=== PATIENT | female | born 1995 | race Caucasian/White ===

== ENCOUNTER 2019-06-29 16:32 | Emergency (ER) | payer MEDICAID ==
[~2019-06-29] VITALS: Ht 182.9 cm; Wt 110.0 kg
[~2019-06-29 16:32] MED LIST: IBUP-1984 PO; NO HOME MEDS
[2019-06-29 18:09] LABS: BASOPHILS # (AUTO) 0.1 X10'3 (0-0.2); BASOPHILS % (AUTO) 0.6 % (0-1); EOSINOPHILS # (AUTO) 0.1 X10'3 (0-0.9); EOSINOPHILS % (AUTO) 1.3 % (0-6); HEMATOCRIT 36.6 % (35.0-45.0); HEMOGLOBIN 11.6 g/dl (12.0-16.0); LYMPHOCYTES # (AUTO) 2.7 X10'3 (1.1-4.8); LYMPHOCYTES % (AUTO) 25.9 % (21-51); MEAN CORPUSCULAR HEMOGLOBIN 24.4 PG (27.0-31.0); MEAN CORPUSCULAR HGB CONC 31.7 g/dL (33.0-36.5); MEAN CORPUSCULAR VOLUME 76.9 FL (78-98); MEAN PLATELET VOLUME 7.1 FL (7.4-10.4); MONOCYTES # (AUTO) 0.9 X10'3 (0-0.9); MONOCYTES % (AUTO) 8.1 % (2-12); NEUTROPHILS # (AUTO) 6.7 X10'3 (1.8-7.7); NEUTROPHILS % (AUTO) 64.1 % (42-75); PLATELET COUNT 434 X10'3 (140-440); RED BLOOD COUNT 4.76 X10'6 (4.20-5.60); RED CELL DISTRIBUTION WIDTH 15.4 % (11.5-14.5); WHITE BLOOD COUNT 10.5 X10'3 (4.5-11.0)
--- NOTE | 2019-06-29 18:15 | NUR ---
CHAPERONED VIRIDIANA RAMIREZ FOR ABD EXAM
[2019-06-29 18:19] LABS: URINE HCG NEGATIVE (NEG)
[2019-06-29 18:20] LABS: CLARITY,URINE CLOUDY (Clear); COLOR,URINE YELLOW (Yellow); GLUCOSE, URINE NEGATIVE (Neg); KETONES,URINE NEGATIVE (Neg); LEUKOCYTE ESTERASE ,URINE MODERATE (Neg); NITRITES, URINE NEGATIVE (Neg); OCCULT BLOOD,URINE TRACE-LYSED (Neg); PROTEIN,URINE NEGATIVE (Neg); UROBILINOGEN,URINE 0.2 E.U/dL (0.2-1.0)
[2019-06-29] MEDS ORDERED: morphine 4 MG/ML inj SYRINge IV PRN (18:20)
[2019-06-29] MEDS ORDERED: ondansetron/PF 4mg/2ml inj IV ONE (18:20)
[2019-06-29] MEDS ORDERED: normal saline 1000ML IV soln IVB ONE (18:20)
[2019-06-29 18:21] LABS: UA COLLECTION TYPE CLN CATCH MIDSTREAM
[2019-06-29 18:22] LABS: ALANINE AMINOTRANSFERASE 36 U/L (12-78); ALBUMIN 3.7 G/DL (3.4-5.0); ALBUMIN/GLOBULIN RATIO 0.8 (1.1-1.5); ALKALINE PHOSPHATASE 102 IU/L (46-116); ANION GAP 9 (8-16); ASPARTATE AMINO TRANSFERASE 21 U/L (10-37); BILIRUBIN,TOTAL 0.3 MG/DL (0.1-1.0); BLOOD UREA NITROGEN 12 MG/DL (7-18); BUN/CREATININE RATIO 14.1 (6.6-38.0); CALCIUM 9.3 MG/DL (8.5-10.1); CHLORIDE 103 MMOL/L (99-107); CREATININE 0.85 MG/DL (0.40-0.90); GLUCOSE 94 MG/DL (70-104); POTASSIUM 4.3 MMOL/L (3.5-5.1); SODIUM 137 MMOL/L (135-145); TOTAL CARBON DIOXIDE 24.8 MMOL/L (24-32); TOTAL PROTEIN 8.2 G/DL (6.4-8.2); eGFR 84 ML/MIN
[2019-06-29 18:25] LABS: LIPASE 97 U/L (73-393)
[2019-06-29 18:49] LABS: BACTERIA,URINE FEW /HPF (Neg); MUCUS STRANDS MANY /LPF (Neg); RBC,URINE NONE SEEN /HPF (0-2); SQUAMOUS EPITHELIAL CELL,UR MODERATE /LPF (FEW)
[2019-06-29 18:50] LABS: CAL OXALATE CRYSTALS 1+ /HPF (NEGATIVE); WBC CLUMPS,URINE FEW /HPF (NEGATIVE)
[2019-06-29] MEDS ORDERED: SULF1TAB49 PO (19:07)
[2019-06-29 19:22] VITALS: BP 114/65
== END 2019-06-29 19:27 | disposition home or self-care (01) ==
LOC: ER 16:33
DX: R10.31 Right lower quadrant pain (principal); R59.0 Localized enlarged lymph nodes; R11.0 Nausea; I10 Essential (primary) hypertension; J45.909 Unspecified asthma, uncomplicated; Z88.1 Allergy status to other antibiotic agents; Z91.040 Latex allergy status; Z79.2 Long term (current) use of antibiotics; Z79.899 Other long term (current) drug therapy
CPT/HCPCS: 36415; 74176; 80053; 81001; 81025; 83690; 85025; 87088; 96374; 96375; 99284; J2270; J2405; J7030

== ENCOUNTER 2019-08-04 06:52 | Emergency (ER) | payer MEDICAID ==
[~2019-08-04] VITALS: Ht 182.9 cm; Wt 142.7 kg
[2019-08-04 07:23] LABS: BASOPHILS % (AUTO) 0.6 % (0-1); EOSINOPHILS # (AUTO) 0.1 X10'3 (0-0.9); EOSINOPHILS % (AUTO) 1.3 % (0-6); HEMATOCRIT 35.4 % (35.0-45.0); HEMOGLOBIN 11.3 g/dl (12.0-16.0); LYMPHOCYTES # (AUTO) 2.5 X10'3 (1.1-4.8); LYMPHOCYTES % (AUTO) 28.1 % (21-51); MEAN CORPUSCULAR HEMOGLOBIN 24.5 PG (27.0-31.0); MEAN CORPUSCULAR HGB CONC 31.8 g/dL (33.0-36.5); MEAN CORPUSCULAR VOLUME 77.2 FL (78-98); MEAN PLATELET VOLUME 7.3 FL (7.4-10.4); MONOCYTES # (AUTO) 0.8 X10'3 (0-0.9); MONOCYTES % (AUTO) 8.9 % (2-12); NEUTROPHILS # (AUTO) 5.4 X10'3 (1.8-7.7); NEUTROPHILS % (AUTO) 61.1 % (42-75); PLATELET COUNT 347 X10'3 (140-440); RED BLOOD COUNT 4.59 X10'6 (4.20-5.60); RED CELL DISTRIBUTION WIDTH 16.1 % (11.5-14.5); WHITE BLOOD COUNT 8.8 X10'3 (4.5-11.0)
[2019-08-04 07:28] LABS: URINE HCG NEGATIVE (NEG)
[2019-08-04 07:29] LABS: CLARITY,URINE SLIGHTLY CLOUDY (Clear); COLOR,URINE YELLOW (Yellow); GLUCOSE, URINE NEGATIVE (Neg); KETONES,URINE NEGATIVE (Neg); LEUKOCYTE ESTERASE ,URINE NEGATIVE (Neg); NITRITES, URINE NEGATIVE (Neg); OCCULT BLOOD,URINE TRACE-INTACT (Neg); PH,URINE 5.5 (4.8-8.0); PROTEIN,URINE NEGATIVE (Neg); UA COLLECTION TYPE CLN CATCH MIDSTREAM; UROBILINOGEN,URINE 0.2 E.U/dL (0.2-1.0)
[2019-08-04 07:37] LABS: MUCUS STRANDS MANY /LPF (Neg); SQUAMOUS EPITHELIAL CELL,UR MANY /LPF (FEW)
[2019-08-04 07:39] LABS: ALANINE AMINOTRANSFERASE 48 U/L (12-78); ALBUMIN 3.4 G/DL (3.4-5.0); ALBUMIN/GLOBULIN RATIO 0.8 (1.1-1.5); ALKALINE PHOSPHATASE 92 IU/L (46-116); ANION GAP 12 (8-16); ASPARTATE AMINO TRANSFERASE 31 U/L (10-37); BILIRUBIN,TOTAL 0.2 MG/DL (0.1-1.0); BLOOD UREA NITROGEN 15 MG/DL (7-18); BUN/CREATININE RATIO 13.5 (6.6-38.0); CALCIUM 8.6 MG/DL (8.5-10.1); CHLORIDE 108 MMOL/L (99-107); CREATININE 1.11 MG/DL (0.40-0.90); GLUCOSE 134 MG/DL (70-104); LIPASE 89 U/L (73-393); POTASSIUM 3.6 MMOL/L (3.5-5.1); SODIUM 143 MMOL/L (135-145); TOTAL CARBON DIOXIDE 22.8 MMOL/L (24-32); TOTAL PROTEIN 7.5 G/DL (6.4-8.2); eGFR 61 ML/MIN
[2019-08-04 07:39] LABS: BACTERIA,URINE FEW /HPF (Neg); CAL OXALATE CRYSTALS 2+ /HPF (NEGATIVE)
[2019-08-04 07:40] LABS: RBC,URINE 0-2 /HPF (0-2); TRANSITIONAL EPI CELLS,URINE FEW /HPF
[2019-08-04] MEDS ORDERED: normal saline 1000ML IV soln IVB ONE (07:40)
[2019-08-04] MEDS ORDERED: morphine 4 MG/ML inj SYRINge IV ONE (07:40)
[2019-08-04] MEDS ORDERED: ketorolac trometh. 30mg/ml inj. IV ONE (07:40)
[2019-08-04 07:43] LABS: HYALINE CASTS 0-3 /LPF (NEGATIVE)
[2019-08-04 07:50] LABS: ANISOCYTOSIS 1+; MICROCYTOSIS 1+; PLATELET ESTIMATE NORMAL
[2019-08-04] MEDS ORDERED: iohexol 300mg/ml 100ml inj. ONE (07:57)
--- NOTE | 2019-08-04 08:32 | NUR ---
Patient to CT at this time via wheelchair, no signs of distress noted, pain medication effective per patient.
[2019-08-04 09:20] LABS: CLARITY,URINE SLIGHTLY CLOUDY (Clear); COLOR,URINE YELLOW (Yellow); GLUCOSE, URINE NEGATIVE (Neg); KETONES,URINE NEGATIVE (Neg); LEUKOCYTE ESTERASE ,URINE NEGATIVE (Neg); NITRITES, URINE NEGATIVE (Neg); OCCULT BLOOD,URINE NEGATIVE (Neg); PROTEIN,URINE NEGATIVE (Neg); UROBILINOGEN,URINE 0.2 E.U/dL (0.2-1.0)
[2019-08-04 09:30] LABS: UA COLLECTION TYPE CLN CATCH MIDSTREAM
[2019-08-04 09:51] LABS: AMORPHOUS URATES 3+; SQUAMOUS EPITHELIAL CELL,UR FEW /LPF (FEW)
[2019-08-04 09:52] LABS: BACTERIA,URINE FEW /HPF (Neg); MUCUS STRANDS MODERATE /LPF (Neg); RBC,URINE 0-2 /HPF (0-2); WBC,URINE 0-4 /HPF (0-4)
[2019-08-04] MEDS ORDERED: MELO7.5T12 PO (10:38)
[2019-08-04 11:11] VITALS: BP 122/74
== END 2019-08-04 11:12 | disposition home or self-care (01) ==
LOC: ER 06:52
DX: R10.31 Right lower quadrant pain (principal); I88.9 Nonspecific lymphadenitis, unspecified; R11.2 Nausea with vomiting, unspecified; I10 Essential (primary) hypertension; J45.909 Unspecified asthma, uncomplicated; Z88.0 Allergy status to penicillin; Z91.040 Latex allergy status; Z79.899 Other long term (current) drug therapy
CPT/HCPCS: 36415; 74177; 80053; 81001; 81025; 83690; 85025; 87081; 87880; 96361; 96374; 96375; 99285; J1885; J2270; J7030; Q9967

== ENCOUNTER 2021-12-23 05:02 | Emergency (ER) | payer MEDICAID ==
[~2021-12-23] VITALS: Ht 182.9 cm; Wt 139.6 kg
[~2021-12-23 05:02] MED LIST changes: +MELO7.5T12 PO
[2021-12-23] MEDS ORDERED: morphine 4 MG/ML inj SYRINge IV ONE (05:25)
[2021-12-23] MEDS ORDERED: acetaminophen 325mg tablet PO ONE (05:25)
[2021-12-23] MEDS ORDERED: ondansetron/PF 4mg/2ml inj IV ONE ×2 (05:25→08:05)
[2021-12-23 06:30] LABS: CLARITY,URINE CLEAR (Clear); COLOR,URINE YELLOW (Yellow); GLUCOSE, URINE NEGATIVE (Neg); KETONES,URINE NEGATIVE (Neg); LEUKOCYTE ESTERASE ,URINE NEGATIVE (Neg); NITRITES, URINE NEGATIVE (Neg); OCCULT BLOOD,URINE LARGE (Neg); PROTEIN,URINE NEGATIVE (Neg); UROBILINOGEN,URINE 0.2 E.U/dL (0.2-1.0)
[2021-12-23 06:36] LABS: UA COLLECTION TYPE CLN CATCH MIDSTREAM
[2021-12-23 06:37] LABS: BACTERIA,URINE FEW /HPF (Neg); BASOPHILS % (AUTO) 0.2 % (0-1); EOSINOPHILS % (AUTO) 0.2 % (0-6); HEMATOCRIT 37.6 % (35.0-45.0); HEMOGLOBIN 12.8 g/dl (12.0-16.0); LYMPHOCYTES # (AUTO) 1.4 X10'3 (1.1-4.8); LYMPHOCYTES % (AUTO) 13.5 % (21-51); MEAN CORPUSCULAR HEMOGLOBIN 28.5 PG (27.0-31.0); MEAN CORPUSCULAR HGB CONC 34.1 g/dL (33.0-36.5); MEAN CORPUSCULAR VOLUME 83.5 FL (78-98); MEAN PLATELET VOLUME 7.5 FL (7.4-10.4); MONOCYTES # (AUTO) 0.6 X10'3 (0-0.9); MONOCYTES % (AUTO) 5.6 % (2-12); MUCUS STRANDS FEW /LPF (Neg); NEUTROPHILS # (AUTO) 8.3 X10'3 (1.8-7.7); NEUTROPHILS % (AUTO) 80.5 % (42-75); PLATELET COUNT 294 X10'3 (140-440); RBC,URINE 50-100 /HPF (0-2); RED CELL DISTRIBUTION WIDTH 14.6 % (11.5-14.5); SQUAMOUS EPITHELIAL CELL,UR MANY /LPF (FEW); WBC,URINE 0-4 /HPF (0-4); WHITE BLOOD COUNT 10.3 X10'3 (4.5-11.0)
[2021-12-23 06:45] LABS: ALANINE AMINOTRANSFERASE 35 U/L (12-78); ALBUMIN 3.5 G/DL (3.4-5.0); ALBUMIN/GLOBULIN RATIO 0.8 (1.1-1.5); ALKALINE PHOSPHATASE 82 IU/L (46-116); ANION GAP 10 (8-16); ASPARTATE AMINO TRANSFERASE 23 U/L (10-37); BILIRUBIN,TOTAL 0.4 MG/DL (0.1-1.0); BLOOD UREA NITROGEN 15 MG/DL (7-18); BUN/CREATININE RATIO 14.4 (6.6-38.0); CALCIUM 8.9 MG/DL (8.5-10.1); CHLORIDE 106 MMOL/L (99-107); CREATININE 1.04 MG/DL (0.40-0.90); GLUCOSE 118 MG/DL (70-104); POTASSIUM 4.2 MMOL/L (3.5-5.1); SODIUM 138 MMOL/L (135-145); TOTAL CARBON DIOXIDE 22.1 MMOL/L (24-32); TOTAL PROTEIN 7.8 G/DL (6.4-8.2); eGFR 65 ML/MIN
[2021-12-23 06:52] LABS: BETA HCG,QUANTITATIVE < 1.0 mIU/ml; LIPASE < 50 U/L (73-393)
[2021-12-23] MEDS ORDERED: iohexol 300mg/ml 100ml inj. ONE (07:42)
[2021-12-23] MEDS ORDERED: ketorolac trometh. 30mg/ml inj. IV ONE (08:35)
[2021-12-23] MEDS ORDERED: HYDR-3965 PO (09:05)
[2021-12-23 09:40] VITALS: BP 142/88
== END 2021-12-23 09:41 | disposition home or self-care (01) ==
LOC: ER 05:02
DX: N20.2 Calculus of kidney with calculus of ureter (principal); R11.2 Nausea with vomiting, unspecified; I10 Essential (primary) hypertension; J45.909 Unspecified asthma, uncomplicated; Z88.0 Allergy status to penicillin; Z91.040 Latex allergy status; Z79.899 Other long term (current) drug therapy; Z79.1 Long term (current) use of non-steroidal anti-inflammatories (NSAID)
CPT/HCPCS: 36415; 74177; 80053; 81001; 83690; 84702; 85025; 96374; 96375; 96376; 99285; J1885; J2270; J2405; J3490; Q9967

== ENCOUNTER 2023-10-21 20:17 | Emergency (ER) | payer MEDICAID, OTHER ==
[~2023-10-21] VITALS: Ht 180.3 cm; Wt 111.0 kg
[~2023-10-21 20:17] MED LIST changes: +HYDR-3965 PO
[2023-10-21] MEDS: ketorolac trometh 15mg/ml vial 15 MG/ML ML IM ONE (21:06)
[2023-10-21] MEDS ORDERED: IBUP-862 PO (21:18)
[2023-10-21] MEDS ORDERED: METH-798 PO (21:18)
[2023-10-21 21:54] VITALS: BP 123/74; PULSE 79; RESP 16; TEMP 98.6; O2SAT 98
== END 2023-10-21 21:55 | disposition home or self-care (01) ==
LOC: ER 20:17
DX: S43.402A Unspecified sprain of left shoulder joint, initial encounter (principal); S80.01XA Contusion of right knee, initial encounter; S16.1XXA Strain of muscle, fascia and tendon at neck level, initial encounter; I10 Essential (primary) hypertension; J45.909 Unspecified asthma, uncomplicated; Z88.1 Allergy status to other antibiotic agents; Z91.040 Latex allergy status; Z79.1 Long term (current) use of non-steroidal anti-inflammatories (NSAID); Z79.2 Long term (current) use of antibiotics; W19.XXXA Unspecified fall, initial encounter; Y93.89 Activity, other specified; Y92.89 Other specified places as the place of occurrence of the external cause; Y99.8 Other external cause status
CPT/HCPCS: 72040; 73030; 73564; 96372; 99284; J1885

== ENCOUNTER 2024-05-05 06:59 | Outpatient (CLI) | payer MEDICAID, OTHER ==
[~2024-05-05] VITALS: Ht 182.2 cm; Wt 122.9 kg
[~2024-05-05 06:59] MED LIST changes: +IBUP-862 PO; +METH-798 PO
[2024-05-05] MEDS: albuterol 2.5 MG/3 ML nebule NEB ONE (07:46)
[2024-05-05 07:47] VITALS: PULSE 72; RESP 14; O2SAT 98
[2024-05-05 07:58] VITALS: PULSE 98; RESP 16
== END 2024-05-05 23:59 | disposition home or self-care (01) ==
LOC: RT 06:59
PROVIDERS: ATTEND Family Medicine
DX: R06.02 Shortness of breath (principal); R07.89 Other chest pain; Z87.09 Personal history of other diseases of the respiratory system
CPT/HCPCS: 94060; 94760; A4620